=== PATIENT | female | born 1955 | race Caucasian/White ===

== ENCOUNTER 2017-10-15 22:24 | Inpatient (IN) | payer BC ==
--- NOTE | 2017-10-15 22:54 | ED ---
General Adult HPI - General Chief complaint: Abdominal Pain Stated complaint: diverticulitis Time Seen by Provider: 10/15/17 22:27 Source: patient, EMS, RN notes reviewed Mode of arrival: EMS - History of Present Illness Initial comments: patient is a pleasant [age]-year-old female presenting to the emergency department with abdominal discomfort. Patient was transferred from [facility]. Patient has had abdominal discomfort for the past 3 weeks. Patient has had some constipation. Patient saw her doctor and was started on stool softeners. Patient was then diagnosed with diverticulitis and started on Cipro and Flagyl. Patient did go to the hospital today and had computed tomography scan done. Patient was given IV Cipro and IV Flagyl. Computed tomography scan had concern for acute diverticulitis with perforation and 3.7 cm fluid collection consistent with abscess. - Related Data Home Medications Medication Instructions Recorded Confirmed Hydrochlorothiazide [Hydrodiuril] 25 mg PO DAILY PRN 10/15/17 10/15/17 Levothyroxine Sodium [Levoxyl] 50 mcg PO DAILY@2200 10/15/17 10/15/17 Lisinopril [Zestril] 20 mg PO DAILY@2200 10/15/17 10/15/17 Allergies Allergy/AdvReac Type Severity Reaction Status Date / Time Penicillins Allergy Swelling Verified 10/15/17 22:36 Review of Systems ROS Statement: Those systems with pertinent positive or pertinent negative responses have been documented in the HPI. ROS Other: All systems not noted in ROS Statement are negative. Constitutional: Denies: fever Eyes: Denies: eye pain ENT: Denies: ear pain Respiratory: Denies: cough Cardiovascular: Denies: chest pain Endocrine: Denies: fatigue Gastrointestinal: Reports: abdominal pain, constipation, other (loss of appetite ) Genitourinary: Denies: dysuria Musculoskeletal: Denies: back pain Skin: Denies: rash Neurological: Denies: weakness Past Medical History Past Medical History: Hypertension, Thyroid Disorder History of Any Multi-Drug Resistant Organisms: None Reported Past Surgical History: No Surgical Hx Reported Additional Past Surgical History / Comment(s): colonscopy, "cyst removal" Past Psychological History: No Psychological Hx Reported Smoking Status: Never smoker Past Alcohol Use History: None Reported Past Drug Use History: None Reported General Exam Limitations: no limitations General appearance: alert, in no apparent distress Head exam: Present: atraumatic Eye exam: Present: normal appearance, PERRL ENT exam: Present: normal oropharynx Neck exam: Present: normal inspection Respiratory exam: Present: normal lung sounds bilaterally Cardiovascular Exam: Present: regular rate, normal rhythm Expanded Peripheral pulses: 2+: Radial (R), Radial (L), Dorsalis Pedis (R), Dorsalis Pedis (L) GI/Abdominal exam: Present: soft, tenderness (moderate tenderness left lower quadrant. Mild tenderness left upper quadrant and suprapubic region.). Absent : distended Extremities exam: Present: normal inspection Neurological exam: Present: alert Psychiatric exam: Present: normal affect, normal mood Skin exam: Present: normal color Course Vital Signs 10/15/17 10/15/17 22:30 23:09 Temperature 98.5 F Pulse Rate 104 H 87 Respiratory 18 18 Rate Blood Pressure 154/91 137/87 O2 Sat by Pulse 95 Oximetry - Reevaluation(s) Reevaluation #1: 10/15/17 23:07 Care was somewhat delayed as I was called away to the floor for a code. on- call surgery has been paged at this time. 10/15/17 23:24 patient did meet sepsis criteria prior to arrival. Patient had already received IV antibiotics Cipro and Flagyl. Blood cultures and lactic acid have been ordered. Case was discussed in detail with Dr. alarcon, including CT results, who will admit for surgical call. She requests clindamycin and gentamicin and consult with interventional radiology and medical on-call. Patient was updated on plan. Disposition Clinical Impression: Diverticulitis of intestine with perforation and abscess Disposition: ADMITTED IP TO THIS [facility] Condition: Serious Referrals: Nonstaff,Physician [Primary Care Provider] - 1-2 days Decision Time: 23:25
[2017-10-15] MEDS ORDERED: NALOXONE 0.4 MG/ML 1 ML VIAL IV PRN (23:26)
[2017-10-15] MEDS ORDERED: ONDANSETRON 4 MG/2 ML VIAL IVP PRN (23:26)
[2017-10-15] MEDS ORDERED: HYDROmorphone 1 MG/ML 1 ML SYRINGE IVP PRN (23:26)
[2017-10-15] MEDS ORDERED: CLINDAMYCIN 900 MG in DEXTROSE 5% IN WATER 50 ML IVPB STA ×2 (23:42)
[2017-10-15] MEDS ORDERED: GENTAMICIN PER PHARMACY MISCELLANE PRN (23:43)
[2017-10-15] MEDS ORDERED: GENTAMICIN 100 MG in SODIUM CHLORIDE 0.9% 100 ML IVPB ONE ×4 (23:45)
[2017-10-15] MEDS: SODIUM CHLORIDE 0.9% 1,000 ML IV SCH (23:53)
[2017-10-16] MEDS: HYDROmorphone 0.5 MG/0.5 ML SYRINGE IVP PRN ×2 (05:20→19:41)
[2017-10-16 06:57] LABS: Basophils % (A) 0 %; CH 27.7; CHCM 32.1; Eosinophils # (A) 0.1 k/uL (0-0.7); Eosinophils % (A) 1 %; HCT 31.2 % (34.0-46.0); HDW 2.55; Luc # (Auto) 0.16; Luc % (Auto) 2; Lymphocytes % (A) 11 %; MCH 27.8 pg (25.0-35.0); MCHC 32.2 g/dL (31.0-37.0); MCV 86.3 fL (80.0-100.0); Mean Platelet Volume 6.6; Monocytes # (A) 0.7 k/uL (0-1.0); Monocytes % (A) 8 %; Neutrophils # (A) 7.1 k/uL (1.3-7.7); Neutrophils % (A) 78 %; RBC 3.62 m/uL (3.80-5.40); RDW 13.1 % (11.5-15.5); WBC 9.2 k/uL (3.8-10.6); WBC (Perox) 9.63
[2017-10-16] MEDS: CLINDAMYCIN 600 MG in DEXTROSE 5% IN WATER 50 ML IVPB SCH ×6 (07:50→17:08)
[2017-10-16] MEDS: ACETAMINOPHEN TAB 325 MG TAB PO PRN (07:50)
[2017-10-16 08:15] LABS: Anion Gap 6 mmol/L; Blood Urea Nitrogen 6 mg/dL (7-17); Calcium 9.2 mg/dL (8.4-10.2); Carbon Dioxide 29 mmol/L (22-30); Chloride 105 mmol/L (98-107); Glucose 119 mg/dL (74-99); Non-African American GFR(MDRD) >60 (>60 ml/min/1.73 sqM); Potassium 4.4 mmol/L (3.5-5.1); Sodium 140 mmol/L (137-145)
[2017-10-16 08:40] LABS: INR 1.1 (<1.2); Partial Thromboplastin Time 24.2 sec (22.0-30.0); Prothrombin Time 11.4 sec (9.0-12.0)
[2017-10-16] MEDS: SODIUM CHLORIDE 0.9% 1,000 ML IV SCH ×2 (09:13→19:49)
[2017-10-16] MEDS: PANTOPRAZOLE 40 MG/10 ML VIAL IV SCH (09:13)
--- NOTE | 2017-10-16 09:25 | P.CONS ---
History of Present Illness - Reason for Consult Consult date: 10/16/17 HTN management Requesting physician: Dany Black - Chief Complaint abdominal pain - History of Present Illness Patient is a 62-year-old female with a past medical history of diverticulitis, hypertension, and hypothyroidism who initially presented [facility] with complaints of abdominal pain and constipation that has been worsening for 3 weeks. She saw her nurse practitioner Claribel Montoya approximately 2 weeks ago and was placed on stool softeners, Cipro, and Flagyl. She has not been having relief and therefore went to the hospital yesterday. She described abdominal pain in the left lower quadrant with radiation to the left upper quadrant and right lower quadrant. She has not been taking any pain medications. She denies any fevers but reports chills. She has not had any nausea or vomiting. She has not been eating as she has had severe constipation. She reports taking Colace and [id number] stool softeners without relief and she states her last bowel movement was 2-3 days ago but was not much. She reports having generalized fatigue. She has no other complaints currently. She states that she had diverticulosis found on colonoscopy several years ago. She states they said she should try to control it with her diet but if not controlled she would need to have 11 cm of her colon removed. She states she has been increasing her fiber in her diet and has not required hospitalization for diverticulitis in the past. Review of Systems General: no fever/+chills, no rigors, no weight loss/weight gain, + fatigue Eyes: no noticable visual changes, no loss of vision ENT: no rhinorrhea, no congestion, no sore throat Cardiovascular: no chest pain, no palpitations, no preyncope/syncope, no edema Pulmonary: no shortness of breath, no wheezing, no cough Abdominal: + abdominal pain, + constipation, no diarrhea, no vomiting, no nausea Genitourinary: no dysuria, no urinary frequency, no unusual discharge/odor Neuro: no unusual paresthesias, no unusual paresis/paralysis, no headache Dermatologic: no unusual rashes, no unusual lesions, no unusual changes in nails Hematologic: no hemoptysis, no hematuria, no melena/hematochezia Psychiatric: no changes in mood or behaviors, no changes in sleep pattern Past Medical History Past Medical History: Hypertension, Thyroid Disorder Additional Past Medical History / Comment(s): diverticulitis History of Any Multi-Drug Resistant Organisms: None Reported Past Surgical History: Tubal Ligation Additional Past Surgical History / Comment(s): colonscopy, " ovarian cyst removal", D & C Past Anesthesia/Blood Transfusion Reactions: No Reported Reaction Past Psychological History: No Psychological Hx Reported Smoking Status: Never smoker Past Alcohol Use History: None Reported Past Drug Use History: None Reported Additional History: Lives alone, no assistive devices, 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 Family members of multiple cancers including breast, lung, and stomach cancer. Denies family history of colon cancer. Medications and Allergies Home Medications Medication Instructions Recorded Confirmed Type Hydrochlorothiazide [Hydrodiuril] 25 mg PO DAILY PRN 10/15/17 10/15/17 History Levothyroxine Sodium [Levoxyl] 50 mcg PO DAILY@219910/15/17 10/15/17 History Lisinopril [Zestril] 20 mg PO DAILY@219910/15/17 10/15/17 History Allergies Allergy/AdvReac Type Severity Reaction Status Date / Time Penicillins Allergy Swelling Verified 10/15/17 22:36 Physical Exam Osteopathic Statement: *. No significant issues noted on an osteopathic structural exam other than those noted in the History and Physical/Consult. Vitals: Vital Signs Temp Pulse Pulse Resp BP BP Pulse Ox 10/16/17 07:12 101.4 F H 87 16 133/72 93 L 10/16/17 00:35 98.3 F 88 16 136/80 95 10/16/17 00:31 98.4 F 89 16 149/74 98 10/15/17 23:09 87 18 137/87 10/15/17 22:30 98.5 F 104 H 18 154/91 95 Intake and Output 10/15/17 10/16/17 10/16/17 22:59 06:59 14:59 Intake Total 150 Balance 150 Intake: Intake, IV Titration 150 Amount Clindamycin 900 mg In 50 Dextrose 5% in Water 50 ml @ 100 mls/hr IVPB ONCE STA Rx#:[id number] Gentamicin 100 mg In 100 Sodium Chloride 0.9% 100 ml @ 102.5 mls/hr IVPB ONCE ONE Rx#:[id number] Other: Voiding Method Toilet Toilet # Voids 1 Weight 75.75 kg General: non toxic, no distress, appears at stated age, normal weight Derm: no unusual rashes/lesions no unusual ecchymoses, warm, dry Head: atraumatic, normocephalic, symmetric Eyes: EOMI, no lid lag, anicteric sclera, pupils equal round reactive to light ENT: Nose and ears atraumatic, no thrush, no pharyngeal erythema Neck: No thyromegaly, no cervical lymphadenopathy, trachea midline, supple Mouth: no lip lesion, mucus membranes moist Cardiovascular: S1S2 reg, no murmur, positive posterior tibial pulse bilateral, no edema, capillary refill less than 2 seconds Lungs: CTA bilateral, no rhonchi, no rales , no accessory muscle use Abdominal: soft, +tender to palpation, no guarding, no appreciable organomegaly , normal bowel sounds Ext: no gross muscle atrophy, muscle strength 5 out of 5 in all 4 extremities grossly, no contractures, Neuro: CN II-XI grossly intact, light touch intact all 4 extremities, finger to nose within normal limits, Psych: Alert, oriented, appropriate affect Results CBC & Chem 7: 10/16/17 06:38 10/16/17 06:38 Labs: Abnormal Lab Results - Last 24 Hours (Table) 10/16/17 10/16/17 Range/Units 06:38 06:38 RBC 3.62 L (3.80-5.40) m/uL Hgb 10.0 L (11.4-16.0) gm/dL Hct 31.2 L (34.0-46.0) % Plt Count 481 H (150-450) k/uL BUN 6 L (7-17) mg/dL Glucose 119 H (74-99) mg/dL Assessment and Plan Assessment: Acute diverticulitis with sigmoid -NOTHING BY MOUTH -CONTINUE WITH CLINDA AND GENT PATIENT HAS A PENICILLIN ALLERGY and has failed Cipro and Flagyl -Pain control -IV fluids -Surgery recommendations, I am consultation Hypertension, currently controlled -Patient has taken herself off of hydrochlorothiazide -Hold lisinopril with borderline normal blood pressures and current infection Hypothyroidism -Resume Synthroid -Check TSH Normocytic anemia -Check iron studies Thrombocytosis, suspect reactive -Follow platelet count DVT prophylaxis: SCDs Discussed with: Patient and nursing A total of 60 minutes was spent on the care of this complex patient more than 50 % of the time was spent in counseling and care coordination. Thank you for allowing us to participate in the care of this pleasant patient. Someone can be reached from the [facility] physicians with our 24-hour day in-house coverage team at [phone] at any point in time. This patient is on the red team and her daytime physician can be reached at [phone] from 7am to 7 pm.
[2017-10-16] MEDS: GENTAMICIN 100 MG in SODIUM CHLORIDE 0.9% 100 ML IVPB SCH ×2 (10:58→17:55)
[2017-10-16] MEDS ORDERED: HYDROmorphone 2 MG/ML 1 ML SYRINGE IVP PRN (14:18)
--- NOTE | 2017-10-16 15:00 | CT ---
EXAMINATION TYPE: CT guided abscess drainage DATE OF EXAM: 10/16/2017 HISTORY: Pelvic abscess COMPARISON: NONE PROCEDURE: Maximal barrier technique was utilized. The skin over suitable path to the abscess was localized wit h CT and the overlying skin prepped and draped. Lidocaine was used for local anesthesia. A skin maryjane k made with a scalpel. Access was gained using CT guidance with a 21-gauge needle, purulent material returned in the hub of the needle. A 0.018 inch wire was advanced and the access site was upsized, the wire was upsized and subsequently an 8.5-Lithuanian drain was deployed within the abscess cavity and fixed in place. Catheter attached to gravity drainage. No immediate complication. Purulent materia l sent for laboratory analysis and draining into the bag. The patient remained in stable condition. IMPRESSION: STATUS POST CT GUIDED ABSCESS DRAINAGE, MICROBIOLOGY ANALYSIS IS PENDING. THIS PROCEDURE WAS PERFORM ED BY THE UNDERSIGNED.
[2017-10-16 15:24] VITALS: RESP 16
--- NOTE | 2017-10-16 15:45 | P.GSHP ---
History of Present Illness H&P Date: 10/16/17 Chief Complaint: Abdominal pain This [age] female who Has a history of being treated for diverticulitis for 3 weeks up in our repeat. The pain began getting worse overnight she was transferred to [place] on. CT exam showed a 3.5 cm abscess. The patient states that her abdominal pain is just been ongoing she's tried stool softeners been on and able to pass a bowel movement she is experiencing some nausea with no vomiting no fevers or chills yesterday however she did have some overnight. Her last colonoscopy was 5 years ago she states she had diverticulosis at that time. Past Medical History Past Medical History: Hypertension, Thyroid Disorder Additional Past Medical History / Comment(s): diverticulitis History of Any Multi-Drug Resistant Organisms: None Reported Past Surgical History: Tubal Ligation Additional Past Surgical History / Comment(s): colonscopy, " ovarian cyst removal", D & C Past Anesthesia/Blood Transfusion Reactions: No Reported Reaction Past Psychological History: No Psychological Hx Reported Smoking Status: Never smoker Past Alcohol Use History: None Reported Past Drug Use History: None Reported - Past Family History Father Family Medical History: Diabetes Mellitus Additional Family Medical History / Comment(s): States multiple family members with heart disease and diabetes. Family members of multiple cancers including breast, lung, and stomach cancer. Denies family history of colon cancer. Medications and Allergies Home Medications Medication Instructions Recorded Confirmed Type Hydrochlorothiazide [Hydrodiuril] 25 mg PO DAILY PRN 10/15/17 10/15/17 History Levothyroxine Sodium [Levoxyl] 50 mcg PO DAILY@0 10/15/17 10/15/17 History Lisinopril [Zestril] 20 mg PO DAILY@0 10/15/17 10/15/17 History Allergies Allergy/AdvReac Type Severity Reaction Status Date / Time Penicillins Allergy Swelling Verified 10/15/17 22:36 Surgical - Exam Osteopathic Statement: *. No significant issues noted on an osteopathic structural exam other than those noted in the History and Physical/Consult. Vital Signs Temp Pulse Resp BP Pulse Ox 98.5 F 104 H 18 154/91 95 10/15/17 22:30 10/15/17 22:30 10/15/17 22:30 10/15/17 22:30 10/15/17 22:30 - General well developed, well nourished - ENT normal mucosa - Cardiovascular Regular rate and rhythm Rhythm: regular - Abdomen Nondistended tenderness palpation left lower and left upper quadrants no rebound rigidity or guarding Abdomen: soft - Neurologic normal coordination, normal sensation - Psychiatric oriented to time, oriented to person, oriented to place Results - Labs 10/16/17 06:38 10/16/17 06:38 Abnormal Lab Results - Last 24 Hours (Table) 10/16/17 10/16/17 Range/Units 06:38 06:38 RBC 3.62 L (3.80-5.40) m/uL Hgb 10.0 L (11.4-16.0) gm/dL Hct 31.2 L (34.0-46.0) % Plt Count 481 H (150-450) k/uL BUN 6 L (7-17) mg/dL Glucose 119 H (74-99) mg/dL Diabetes panel 10/16/17 Range/Units 06:38 Sodium 140 (137-145) mmol/L Potassium 4.4 (3.5-5.1) mmol/L Chloride 105 (98-107) mmol/L Carbon Dioxide 29 (22-30) mmol/L BUN 6 L (7-17) mg/dL Creatinine 0.52 (0.52-1.04) mg/dL Glucose 119 H (74-99) mg/dL Calcium 9.2 (8.4-10.2) mg/dL Calcium panel 10/16/17 Range/Units 06:38 Calcium 9.2 (8.4-10.2) mg/dL Pituitary panel 10/16/17 Range/Units 06:38 Sodium 140 (137-145) mmol/L Potassium 4.4 (3.5-5.1) mmol/L Chloride 105 (98-107) mmol/L Carbon Dioxide 29 (22-30) mmol/L BUN 6 L (7-17) mg/dL Creatinine 0.52 (0.52-1.04) mg/dL Glucose 119 H (74-99) mg/dL Calcium 9.2 (8.4-10.2) mg/dL Adrenal panel 10/16/17 Range/Units 06:38 Sodium 140 (137-145) mmol/L Potassium 4.4 (3.5-5.1) mmol/L Chloride 105 (98-107) mmol/L Carbon Dioxide 29 (22-30) mmol/L BUN 6 L (7-17) mg/dL Creatinine 0.52 (0.52-1.04) mg/dL Glucose 119 H (74-99) mg/dL Calcium 9.2 (8.4-10.2) mg/dL - Imaging CT scan - pelvis: report reviewed, image reviewed US - abdomen: report reviewed, image reviewed Assessment and Plan Assessment: Complicated diverticulitis with 3.5 cm abscess. Plan: Patient is remain nothing by mouth started on IV antibiotics. With IV fluids. Interventional radiology was consulted for CT-guided drainage of abscess. This plan was discussed with the patient stated she understood agreed. Further recommendations to follow drainage
[2017-10-16] MEDS: LEVOTHYROXINE 50 MCG TAB PO SCH (21:28)
[2017-10-17] MEDS: CLINDAMYCIN 600 MG in DEXTROSE 5% IN WATER 50 ML IVPB SCH ×6 (00:05→12:14)
[2017-10-17] MEDS: GENTAMICIN 100 MG in SODIUM CHLORIDE 0.9% 100 ML IVPB SCH (03:41)
[2017-10-17 07:23] LABS: CHCM 31.7; HDW 2.52; HGB 9.3 gm/dL (11.4-16.0); Hypochromasia Slight; MCH 27.5 pg (25.0-35.0); MCHC 31.1 g/dL (31.0-37.0); MCV 88.5 fL (80.0-100.0); Mean Platelet Volume 6.6; RBC 3.39 m/uL (3.80-5.40); RDW 13.5 % (11.5-15.5); WBC 9.6 k/uL (3.8-10.6)
[2017-10-17 07:39] LABS: ALT 34 U/L (9-52); AST 16 U/L (14-36); Alkaline Phosphatase 65 U/L (38-126); Anion Gap 7 mmol/L; Blood Urea Nitrogen 5 mg/dL (7-17); Calcium 9.4 mg/dL (8.4-10.2); Carbon Dioxide 29 mmol/L (22-30); Chloride 104 mmol/L (98-107); Glucose 131 mg/dL (74-99); Non-African American GFR(MDRD) >60 (>60 ml/min/1.73 sqM); Potassium 4.7 mmol/L (3.5-5.1); Sodium 140 mmol/L (137-145); Total Bilirubin 0.2 mg/dL (0.2-1.3); Total Protein 6.3 g/dL (6.3-8.2)
[2017-10-17] MEDS: PANTOPRAZOLE 40 MG/10 ML VIAL IV SCH (08:15)
[2017-10-17] MEDS ORDERED: GENTAMICIN TROUGH DUE 1 EACH MISC MISCELLANE ONE (09:00)
[2017-10-17] MEDS ORDERED: GENTAMICIN PEAK DUE 1 EACH MISC MISCELLANE ONE ×2 (11:00→12:00)
--- NOTE | 2017-10-17 11:25 | P.PN ---
Subjective Progress Note Date: 10/17/17 Principal diagnosis: abdominal pain Patient is a 62-year-old female with a past medical history of diverticulitis, hypertension, and hypothyroidism who initially presented [facility] with complaints of abdominal pain and constipation that has been worsening for 3 weeks. She saw her nurse practitioner Claribel Montoya approximately 2 weeks ago and was placed on stool softeners, Cipro, and Flagyl. She has not been having relief and therefore went to the hospital 10/15 . She underwent a CT of the abdomen and pelvis which demonstrated diverticulitis with abscess near the sigmoid colon. She underwent percutaneous drainage of the abscess on 10/16 without complications. She initially had been started on Clinda and gentamicin, however her gentamicin level came back slightly elevated. Her cultures are growing out gram-positive bacteria. Patient seen and examined at bedside. She complains of abdominal pain from her percutaneous drainage site. She states that her pain from yesterday is resolved and this is completely different pain. She denies nausea or vomiting. She is overall feeling better than yesterday. Objective - Vital Signs Vital signs: Vital Signs Temp 98.1 F 10/17/17 07:27 Pulse 80 10/17/17 07:27 Resp 16 10/17/17 07:27 BP 121/84 10/17/17 07:27 Pulse Ox 94 L 10/17/17 07:27 Intake & Output 10/16/17 10/17/17 10/17/17 18:59 06:59 18:59 Intake Total 960 2360 Output Total 30 Balance 960 2330 Weight 75.75 kg 75.75 kg Intake: IV 960 960 Sodium Chloride 0.9% 1, 960 960 000 ml @ 120 mls/hr IV . Q8H20M YVONNE Rx#:[id number] Intake, IV Titration 1160 Amount Clindamycin 600 mg In 100 Dextrose 5% in Water 50 ml @ 100 mls/hr IVPB Q6HR YVONNE Rx#:[id number] Gentamicin 100 mg In 100 Sodium Chloride 0.9% 100 ml @ 102.5 mls/hr IVPB Q8H YVONNE Rx#:[id number] Sodium Chloride 0.9% 1, 960 000 ml @ 120 mls/hr IV . Q8H20M YVONNE Rx#:[id number] Oral 240 Output: Drainage 30 Left Lower Abdomen 30 Other: Voiding Method Toilet Toilet Toilet # Voids 3 - Exam General: non toxic, no distress, appears at stated age Derm: warm, dry Head: atraumatic, normocephalic, symmetric Eyes: EOMI, no lid lag, anicteric sclera Mouth: no lip lesion, mucus membranes moist Cardiovascular: S1S2 reg, no murmur, positive posterior tibial pulse bilateral, Lungs: CTA bilateral, no rhonchi, no rales , no accessory muscle use Abdominal: soft, + tender to palpation LLQ, no guarding, no appreciable organomegaly Ext: no gross muscle atrophy, no edema, no contractures Neuro: CN II-XI grossly intact, no focal neuro deficits Psych: Alert, oriented, appropriate affect - Labs CBC & Chem 7: 10/17/17 06:53 10/17/17 06:53 Labs: Abnormal Lab Results - Last 24 Hours (Table) 10/17/17 10/17/17 10/17/17 Range/Units 06:53 06:53 06:53 RBC 3.39 L (3.80-5.40) m/uL Hgb 9.3 L (11.4-16.0) gm/dL Hct 30.0 L (34.0-46.0) % Plt Count 487 H (150-450) k/uL BUN 5 L (7-17) mg/dL Glucose 131 H (74-99) mg/dL Albumin 3.0 L (3.5-5.0) g/dL Gentamicin Trough 2.8 H* ug/mL Microbiology - Last 24 Hours (Table) 10/16/17 12:00 Gram Stain - Preliminary Aspirate Body Fluid Culture - Preliminary 10/15/17 23:27 Blood Culture - Preliminary Blood No Growth after 24 hours 10/16/17 12:00 Anaerobic Culture - Preliminary Aspirate Assessment and Plan Assessment: Acute diverticulitis with sigmoid abscess s/p percutaneous drainage. -soft diet started by surgery. -low with drainage of abscess and elevated gent level transition abx to levauqin and flagyl, to provide gram negative, gram + and anerobic coverage. Could also consider Imipenem but patient with hx of anaphylaxis wtih PCN. -Pain control -IV fluids decreased Hypertension, currently controlled -Patient has taken herself off of hydrochlorothiazide -Hold lisinopril with borderline normal blood pressures and current infection - follow BP closely Hypothyroidism -Resume Synthroid -Check TSH Anemic of chronic disease with iron deficiency anemia - follow CBC - start Fe supplementation Thrombocytosis, suspect reactive -Follow platelet count Hyperglycemia - may be reactive vs early DM, check a1c DVT prophylaxis: SCDs Discussed with: Patient and nursing A total of 35 minutes was spent on the care of this complex patient more than 50 % of the time was spent in counseling and care coordination. Thank you for allowing us to participate in the care of this pleasant patient. Someone can be reached from the [facility] physicians with our 24-hour day in-house coverage team at [phone] at any point in time. This patient is on the red team and her daytime physician can be reached at [phone] from 7am to 7pm.
[2017-10-17 12:06] LABS: Iron Saturation 8.02 (12.00-45.00)
[2017-10-17] MEDS: metroNIDAZOLE 500 MG TAB PO SCH ×2 (15:57→22:00)
[2017-10-17] MEDS: LEVOFLOXACIN 500MG-D5W PMX 500 MG in DEXTROSE/WATER 1 100ML.BAG IVPB SCH (15:57)
[2017-10-17] MEDS: HYDROmorphone 0.5 MG/0.5 ML SYRINGE IVP PRN (21:59)
[2017-10-17] MEDS: LEVOTHYROXINE 50 MCG TAB PO SCH (22:00)
[2017-10-17] MEDS: SODIUM CHLORIDE 0.9% 1,000 ML IV SCH (23:30)
[2017-10-18] MEDS: SODIUM CHLORIDE 0.9% 1,000 ML IV SCH ×2 (07:21→07:22)
[2017-10-18 07:48] LABS: CH 27.5; CHCM 31.7; HCT 31.9 % (34.0-46.0); HDW 2.54; HGB 10.1 gm/dL (11.4-16.0); Hypochromasia Slight; MCH 27.4 pg (25.0-35.0); MCHC 31.6 g/dL (31.0-37.0); MCV 86.8 fL (80.0-100.0); Mean Platelet Volume 7.2; RBC 3.67 m/uL (3.80-5.40); RDW 13.4 % (11.5-15.5); WBC 9.2 k/uL (3.8-10.6)
[2017-10-18 08:01] LABS: ALT 34 U/L (9-52); AST 23 U/L (14-36); Alkaline Phosphatase 59 U/L (38-126); Anion Gap 9 mmol/L; Blood Urea Nitrogen 10 mg/dL (7-17); Calcium 9.8 mg/dL (8.4-10.2); Carbon Dioxide 28 mmol/L (22-30); Chloride 103 mmol/L (98-107); Glucose 115 mg/dL (74-99); Non-African American GFR(MDRD) >60 (>60 ml/min/1.73 sqM); Potassium 4.5 mmol/L (3.5-5.1); Sodium 140 mmol/L (137-145); Total Bilirubin 0.3 mg/dL (0.2-1.3); Total Protein 6.9 g/dL (6.3-8.2)
[2017-10-18 08:13] VITALS: TEMP 98.1
[2017-10-18] MEDS: PANTOPRAZOLE 40 MG/10 ML VIAL IV SCH (08:51)
[2017-10-18] MEDS: metroNIDAZOLE 500 MG TAB PO SCH ×2 (08:51→17:03)
--- NOTE | 2017-10-18 09:46 | P.PN ---
Subjective Progress Note Date: 10/18/17 Principal diagnosis: abdominal pain Patient is a 62-year-old female with a past medical history of diverticulitis, hypertension, and hypothyroidism who initially presented [facility] with complaints of abdominal pain and constipation that has been worsening for 3 weeks. She saw her nurse practitioner Claribel Montoya approximately 2 weeks ago and was placed on stool softeners, Cipro, and Flagyl. She has not been having relief and therefore went to the hospital 10/15 . She underwent a CT of the abdomen and pelvis which demonstrated diverticulitis with abscess near the sigmoid colon. She underwent percutaneous drainage of the abscess on 10/16 with placement of drain without complications. She initially had been started on Clinda and gentamicin, however her gentamicin level came back slightly elevated she was transitioned to levaquin and flagyl on 10/18. Her cultures are growing out gram-positive bacteria. Patient seen and examined at bedside. Feeling better today. + BM yesterday, no nausea or vomiting. Pain less at drain site, no chest pain or shortness of breath. Discussed with her the results of her thyroid test and that a high TSH means her thyroid is underacting and she needs an increased levothyroxine dose. States that her have been testing her thyroid often and trying decide on the correct dose. I told her I recommned holding off on repeat TSH for 4-8 weeks as it takes this long to reach a steady state and determine if medication changes are effective. We sometimes retest sooner if TSH is significantly abnormal. Objective - Vital Signs Vital signs: Vital Signs Temp 98.1 F 10/18/17 08:00 Pulse 77 10/18/17 08:00 Resp 16 10/18/17 08:00 BP 125/79 10/18/17 08:00 Pulse Ox 95 10/18/17 08:00 Intake & Output 10/17/17 10/18/17 10/18/17 18:59 06:59 18:59 Intake Total 1130 500 Balance 1130 500 Intake: IV 600 Sodium Chloride 0.9% 1, 600 000 ml @ 75 mls/hr IV . [id number] YVONNE Rx#:[id number] Intake, IV Titration 50 Amount Clindamycin 600 mg In 50 Dextrose 5% in Water 50 ml @ 100 mls/hr IVPB Q6HR YVONNE Rx#:[id number] Oral 480 500 Other: Voiding Method Toilet # Voids 5 1 - Exam General: non toxic, no distress, appears at stated age Derm: warm, dry Head: atraumatic, normocephalic, symmetric Eyes: EOMI, no lid lag, anicteric sclera Mouth: no lip lesion, mucus membranes moist Cardiovascular: S1S2 reg, no murmur, positive posterior tibial pulse bilateral, Lungs: CTA bilateral, no rhonchi, no rales , no accessory muscle use Abdominal: soft, + tender to palpation LLQ, drain in place with drainage purulent/sanguineous fluid no guarding, no appreciable organomegaly Ext: no gross muscle atrophy, no edema, no contractures Neuro: CN II-XI grossly intact, no focal neuro deficits Psych: Alert, oriented, appropriate affect - Labs CBC & Chem 7: 10/18/17 06:54 10/18/17 06:54 Labs: Abnormal Lab Results - Last 24 Hours (Table) 10/17/17 10/18/17 10/18/17 Range/Units 06:53 06:54 06:54 RBC 3.67 L (3.80-5.40) m/uL Hgb 10.1 L (11.4-16.0) gm/dL Hct 31.9 L (34.0-46.0) % Plt Count 487 H (150-450) k/uL Glucose 115 H (74-99) mg/dL Iron 15 L (50-170) ug/dL TIBC 187 L (228-460) ug/dL Iron Saturation 8.02 L (12.00-45.00) Ferritin 348.0 H (10.0-291.0) ng/mL Albumin 3.3 L (3.5-5.0) g/dL TSH 8.800 H (0.465-4.680) mIU/L Microbiology - Last 24 Hours (Table) 10/15/17 23:27 Blood Culture - Preliminary Blood No Growth after 48 hours Assessment and Plan Assessment: Acute diverticulitis with sigmoid abscess s/p percutaneous drainage. -Clear liquid diet per surgery - await cultures - drainage cath in place -levaquin and flagyl -Pain control -IV fluids Hypertension, currently controlled -Patient has taken herself off of hydrochlorothiazide -Hold lisinopril with borderline normal blood pressures and current infection - follow BP closely Hypothyroidism - increase Synthroid - TSH evelated - repeat TSH in 6 weeks. Anemic of chronic disease with iron deficiency anemia - follow CBC - start Fe supplementation Thrombocytosis, suspect reactive -Follow platelet count Hyperglycemia - may be reactive vs early DM - A1c pending DVT prophylaxis: SCDs Discussed with: Patient and nursing A total of 30 minutes was spent on the care of this complex patient more than 50 % of the time was spent in counseling and care coordination. Thank you for allowing us to participate in the care of this pleasant patient. Someone can be reached from the [place] emergency department physicians with our 24-hour day in-house coverage team at [phone] at any point in time. This patient is on the red team and her daytime physician can be reached at [phone] from 7am to 7pm.
--- NOTE | 2017-10-18 12:48 | P.DS ---
Providers Date of admission: 10/15/17 23:29 Expected date of discharge: 10/11/17 Attending physician: Dany Black DO Consults: 10/15/17 23:27 Consult Physician Urgent Consulting Provider: Alden Del Toro Consult Reason/Comments: medical care Do you want consulting provider notified?: Yes Primary care physician: Physician Nonstaff Hospital Course: 62-year-old female who presented with a chief complaint of developing lower abdominal pain. Patient is a history of being treated for diverticulitis 3 weeks prior. Patient states she had completed antibiotics. patient stated the pain continued to persist there was a nausea sensation poor appetite. CAT scan scan of the abdomen pelvis showed a 3.5 cm abscess. patient was started on IV antibiotics interventional radiology did see the patient patient did have a CAT scan guided abscess drained by the interventional radiologist the the catheter was attached to gravity drainage . This was done on October 16. On the day of discharge the patient was afebrile up ambulating in the sheriff patient had a bowel movement was tolerating a diet was felt to be appropriate to be discharged with the plan the patient with follow-up in 2 weeks and have a repeat CAT scan done in one week Impression discharge diagnosis Complicated diverticulitis with a 3.5 cm abscess Acute diverticulitis with sigmoid abscess status post percutaneous drainage Hypothyroidism Anemia of chronic disease with iron deficiency anemia Thrombocytosis suspect reactive Hyperglycemia may be reactive or early diabetes not ruled out The above impression and plan of care have been discussed and directed by signing physician. Tiera Murray nurse practitioner acting as scribe for signing physician. Patient Condition at Discharge: Serious Plan - Discharge Summary New Discharge Prescriptions: New Levothyroxine Sodium [Levoxyl] 75 mcg PO DAILY #30 tab metroNIDAZOLE [Flagyl] 500 mg PO TID #63 tab Ferrous Sulfate [Iron (65 MG Elemental)] 325 mg PO BID-W/MEALS #60 tab Levofloxacin [Levaquin] 750 mg PO DAILY #14 tab Acetaminophen Tab [Tylenol Tab] 650 mg PO Q4H PRN #30 tablet PRN Reason: Mild Pain Continue Hydrochlorothiazide [Hydrodiuril] 25 mg PO DAILY PRN PRN Reason: Edema Lisinopril [Zestril] 20 mg PO DAILY@2200 Discontinued Levothyroxine Sodium [Levoxyl] 50 mcg PO DAILY@2200 Discharge Medication List Hydrochlorothiazide [Hydrodiuril] 25 mg PO DAILY PRN 10/15/17 [History] Lisinopril [Zestril] 20 mg PO DAILY@2200 10/15/17 [History] Acetaminophen Tab [Tylenol Tab] 650 mg PO Q4H PRN #30 tablet 10/18/17 [Rx] Ferrous Sulfate [Iron (65 MG Elemental)] 325 mg PO BID-W/MEALS #60 tab 10/18/17 [Rx] Levofloxacin [Levaquin] 750 mg PO DAILY #14 tab 10/18/17 [Rx] Levothyroxine Sodium [Levoxyl] 75 mcg PO DAILY #30 tab 10/18/17 [Rx] metroNIDAZOLE [Flagyl] 500 mg PO TID #63 tab 10/18/17 [Rx] Follow up Appointment(s)/Referral(s): Nonstaff,Physician [Primary Care Provider] - 1-2 days Dany Black DO [Doctor of Osteopathic Medicine] - 1 Week Ambulatory/Diagnostic Orders: Comprehensive Metabolic Panel [LAB.AMB] Time Frame: 10/25/17, Location: Determined By Patient Activity/Diet/Wound Care/Special Instructions: CAT scan abdomen and pelvis with IV contrast to be done on October 25 Instructions to be provided on care of the percutaneous drain no tube bath Keep dressing around drain site dry Notify the attending of any fever chills Colace for constipation as needed Discharge Disposition: HOME WITH HOME HEALTH SERVICES
[2017-10-18 16:16] VITALS: BP 119/70; PULSE 70
[2017-10-18] MEDS: LEVOFLOXACIN 500MG-D5W PMX 500 MG in DEXTROSE/WATER 1 100ML.BAG IVPB SCH (17:03)
[2017-10-18] MEDS ORDERED: FERROUS SULFATE 325 MG TAB PO SCH (17:30)
[2017-10-18] MEDS: ACETAMINOPHEN TAB 325 MG TAB PO PRN (17:35)
[2017-10-18] MEDS ORDERED: LISINOPRIL 20 MG TAB PO SCH (22:00)
[2017-10-19] MEDS ORDERED: LEVOTHYROXINE 75 MCG TAB PO SCH (06:30)
[2017-10-19] MEDS ORDERED: PANTOPRAZOLE 40 MG TABLET PO SCH (07:30)
== END 2017-10-18 17:40 | disposition home health service (06) | DRG 392 ==
LOC: EC 22:24 → 3SUR 23:29
PROVIDERS: ADMIT Student in an Organized Health Care Education/Training Program; ATTEND Student in an Organized Health Care Education/Training Program
DX: K57.20 Diverticulitis of large intestine with perforation and abscess without bleeding (principal); I10 Essential (primary) hypertension; E03.9 Hypothyroidism, unspecified; D50.9 Iron deficiency anemia, unspecified; E11.9 Type 2 diabetes mellitus without complications; D63.8 Anemia in other chronic diseases classified elsewhere; K59.00 Constipation, unspecified; R73.9 Hyperglycemia, unspecified; R79.89 Other specified abnormal findings of blood chemistry
CPT/HCPCS: 36415; 75989; 77012; 80048; 80053; 80170; 82728; 83036; 83540; 83550; 83605; 84439; 84443; 85025; 85027; 85610; 85730; 87040; 87070; 87075; 87205; 96365; 99285

== ENCOUNTER → 2017-10-26 | Outpatient (CLI) | payer BC ==
--- NOTE | 2017-10-27 08:06 | CT ---
EXAMINATION TYPE: CT abdomen pelvis w con DATE OF EXAM: 10/26/2017 COMPARISON: NONE HISTORY: Follow up drainage placement. CT DLP: 1386 mGycm Automated exposure control for dose reduction was used. CONTRAST: CT scan of the abdomen pelvis is performed with IV Contrast, patient injected with 100 mL of Omnipaqu e 300. FINDINGS- LUNG BASES- No significant abnormality is appreciated. LIVER/GB- No gross abnormality is appreciated. PANCREAS- No gross abnormality is seen. SPLEEN- No gross abnormality is seen. ADRENALS- No gross abnormality is seen. KIDNEYS/BLADDER- no hydronephrosis or nephrolithiasis. Stable simple appearing left renal cyst. Extra renal pelvis noted bilaterally. BOWEL- no bowel dilatation. Normal appendix. LYMPH NODES- No greater than 1cm abdominal or pelvic lymph nodes are appreciated. OSSEOUS STRUCTURES-hypertrophic and degenerative changes of the spine noted.. OTHER- drainage catheter is seen. Changes of diverticulosis noted with mild residual inflammation co mpatible with mild residual diverticulitis. Within the abscess pocket now there is only a small amoun t of free fluid noted. There is thickening of the left margin of the bladder likely related cystitis from the adjacent to the previous abscess and residual inflammation. Air pocket measures 2.4 cm with no residual significant amount of free fluid. IMPRESSION- 1. Changes of diverticulosis noted with mild residual inflammation compatible with mild residual dive rticulitis. Within the abscess pocket now there is no significant amount of free fluid noted. Only ai r is seen within the pocket which measures 2.4 cm. There is thickening of the left margin of the blad diane likely related cystitis from the adjacent previous abscess and residual diverticulitis.
== END | disposition home or self-care (01) ==
LOC: RADCTMAIN 19:26
PROVIDERS: ATTEND Student in an Organized Health Care Education/Training Program
DX: K57.90 Diverticulosis of intestine, part unspecified, without perforation or abscess without bleeding (principal); N32.89 Other specified disorders of bladder
CPT/HCPCS: 74177; Q9967